=== PATIENT | female | born 1975 | race Hispanic/Latino ===

== ENCOUNTER → 2022-10-08 | Outpatient (CLI) | payer OTHER | END | disposition home or self-care (01) | LOC: DAH 10:00 → EDSTATUS 10-10 12:20 | PROVIDERS: ATTEND Internal Medicine | DX: Z12.11 Encounter for screening for malignant neoplasm of colon (principal); Z20.822 Contact with and (suspected) exposure to COVID-19; R12 Heartburn; Z53.8 Procedure and treatment not carried out for other reasons | CPT/HCPCS: 87426 ==